=== PATIENT | female | born 1985 | race Two or more races ===

== ENCOUNTER 2018-07-28 00:51 | Emergency (ER) | payer MEDICAID ==
[~2018-07-28] VITALS: Ht 162.6 cm; Wt 71.8 kg
--- NOTE | 2018-07-28 00:58 | NUR ---
BIBSELF FOR RASH ON NECK AND ARMS, PT AAOX4, PT AMBULATORY TO BED 2, -SOB, NAD NOTED, VSS, PT ON MONITOR, PENDING MD YO
[2018-07-28] MEDS ORDERED: diphenhydrAMINE HCL 25 MG CAPSULE PO ONE (01:30)
[2018-07-28] MEDS ORDERED: predniSONE 20 MG TABLET PO ONE (01:30)
[2018-07-28] MEDS ORDERED: predniSONE 20 MG TABLET ONE (01:31)
[2018-07-28] MEDS ORDERED: diphenhydrAMINE HCL 50 MG CAPSULE ONE (01:31)
[2018-07-28 01:48] VITALS: BP 118/77
== END 2018-07-28 01:48 | disposition home or self-care (01) ==
LOC: ER 00:58
DX: L50.9 Urticaria, unspecified (principal); Z98.890 Other specified postprocedural states
CPT/HCPCS: 99283; J7512; Q0163

== ENCOUNTER 2018-10-04 00:21 | Emergency (ER) | payer MEDICAID ==
[~2018-10-04] VITALS: Ht 167.6 cm; Wt 72.6 kg
[2018-10-04 00:25] VITALS: BP 131/71
[2018-10-04 00:54] LABS: BASOPHILS % (AUTO) 0.7 % (0.0-2.0); EOSINOPHILS % (AUTO) 1.9 % (0.0-6.0); HEMATOCRIT 27 % (33-45); HEMOGLOBIN 8.4 g/dL (11.5-14.8); LYMPHOCYTES # (AUTO) 1.9 /CMM (0.8-4.8); LYMPHOCYTES % (AUTO) 33.3 % (20.0-44.0); MEAN CORPUSCULAR HGB CONC 31 g/dl (31.0-36.0); MEAN CORPUSCULAR VOLUME 70 fL (82-100); MONOCYTES # (AUTO) 0.5 /CMM (0.1-1.30); MONOCYTES % (AUTO) 9.4 % (2.0-12.0); NEUTROPHILS # (AUTO) 3.1 /CMM (1.8-8.9); NEUTROPHILS % (AUTO) 54.7 % (43.0-81.0); PLATELET COUNT (AUTO) 292 /CMM (150-450); RED BLOOD CELL COUNT(AUTO) 3.83 MIL/uL (4.0-5.2); WHITE BLOOD COUNT (AUTO) 5.7 K/uL (4.3-11.0)
[2018-10-04] MEDS ORDERED: ONDANSETRON 4 MG TAB.RAPDIS ONE (01:21)
[2018-10-04] MEDS ORDERED: ONDANSETRON 4 MG TAB.RAPDIS SL ONE (01:30)
== END 2018-10-04 01:26 | disposition home or self-care (01) ==
LOC: ER 00:29
DX: N93.8 Other specified abnormal uterine and vaginal bleeding (principal); D64.9 Anemia, unspecified; Z98.890 Other specified postprocedural states
CPT/HCPCS: 36415; 84703; 85025; 99283; Q0162

== ENCOUNTER 2018-12-03 22:31 | Emergency (ER) | payer MEDICAID ==
[~2018-12-03] VITALS: Ht 167.6 cm; Wt 77.6 kg
--- NOTE | 2018-12-03 22:54 | NUR ---
PT BIBSELF C/O CHEST TIGHTNESS. PT ALSO C/O NON PRODUCTIVE COUGH, HEADACHE, DIZZINESS, NAUSEA. 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 PT AAOX4. RESPIRATIONS EVEN AND UNLABORED. SKIN WARM AND INTACT. NO ACUTE DISTRESS NOTED AT THIS TIME. WILL CONTINUE TO MONITOR
--- NOTE | 2018-12-03 23:16 | NUR ---
Patient discharged to home in stable condition. Written and verbal after care instructions given. Patient verbalizes understanding of instruction.Pt ambulatory with a steady gait
[2018-12-03 23:27] VITALS: BP 121/78
== END 2018-12-03 23:15 | disposition home or self-care (01) ==
LOC: ER 22:31
DX: J06.9 Acute upper respiratory infection, unspecified (principal); Z98.890 Other specified postprocedural states

== ENCOUNTER 2018-12-21 00:33 | Emergency (ER) | payer MEDICAID ==
--- NOTE | 2018-12-21 00:38 | NUR ---
CALLED TO FOR TRIAGE NO ANSWER.
--- NOTE | 2018-12-21 00:50 | NUR ---
CALLED TO FOR TRIAGE FOR 2ND TIME NO ANSWER.
== END 2018-12-21 00:52 | disposition left against medical advice (07) ==
LOC: ER 00:35
DX: Z53.21 Procedure and treatment not carried out due to patient leaving prior to being seen by health care provider (principal)